=== PATIENT | female | born 1985 | race Two or more races ===

== ENCOUNTER 2018-11-11 18:28 | Emergency (ER) | payer MEDICAID ==
[~2018-11-11] VITALS: Ht 162.6 cm; Wt 80.0 kg
[2018-11-11 19:05] LABS: BASOPHILS # (AUTO) 0.04 x10^3/uL (0-0.1); BASOPHILS % (AUTO) 1 % (0-1); EOSINOPHILS # (AUTO) 0.18 x10^3/uL (0-0.4); EOSINOPHILS % (AUTO) 2 % (1-7); LYMPHOCYTES # (AUTO) 1.86 x10^3/uL (1-3.4); LYMPHOCYTES % (AUTO) 23 % (22-44); MD NO; MEAN CORPUSCULAR HEMOGLOBIN 29.4 pg (27.0-34.8); MEAN CORPUSCULAR HGB CONC 32.6 g/dL (32.4-35.8); MEAN CORPUSCULAR VOLUME 90.1 fL (80-100); MEAN PLATELET VOLUME 8.8 fL (7.4-10.4); MONOCYTES # (AUTO) 0.48 x10^3/uL (0.2-0.8); MONOCYTES % (AUTO) 6 % (2-9); NEUTROPHILS # (AUTO) 5.66 x10^3/uL (1.8-6.8); NEUTROPHILS % (AUTO) 69 % (42-75); PLATELET COUNT 262 x10^3/uL (130-400); RED BLOOD COUNT 4.37 x10^6/uL (3.82-5.3); RED CELL DISTRIBUTION WIDTH 13.9 % (9.6-15.2)
[2018-11-11 19:16] LABS: ALBUMIN 3.9 g/dL (3.4-5.0); ANION GAP 8 mmol/L (5-15); CHLORIDE 108 mmol/L (98-107); CREATININE 0.74 mg/dL (0.55-1.02)
[2018-11-11 19:20] LABS: TROPONIN I < 0.015 ng/mL (0.000-0.045)
--- NOTE | 2018-11-11 19:20 | NUR ---
FROM LOBBY TO ROOM AT THIS TIME
[2018-11-11] MEDS ORDERED: MECLIZINE CHEWABLE 25 MG TAB ONE (19:29)
[2018-11-11] MEDS ORDERED: MECLIZINE CHEWABLE 25 MG TAB PO ONE (19:30)
--- NOTE | 2018-11-11 19:31 | NUR ---
PT PRESENTING TO ER FOR INTERMITTENT DIZZINESS, LEFT EYE TWITCHING AND LEFT HAND GOING NUMB. AT BEDSIDE. MD TO BEDSIDE FOR ASSESSMENT, FURTHER ORDERS RECEIVED. CONNECTED TO ALL MONITORING, VSS. CALL LIGHT WITHIN REACH
[2018-11-11 19:40] VITALS: BP 113/69
--- NOTE | 2018-11-11 19:40 | NUR ---
UA SENT AND PT MEDICATED PER MAR
[2018-11-11 20:12] LABS: T4 (THYROXINE) 8.4 mcg/dL (4.8-13.9); THYROID STIMULATING HORMONE 0.488 mIU/L (0.358-3.740)
[2018-11-11 20:12] LABS: MICROSCOPIC AUTO
[2018-11-11 20:19] LABS: CULTURE INDICATED? YES
--- NOTE | 2018-11-11 21:26 | NUR ---
PT D/C WITH D/C SUMMARY AND SCRIPTS. ALL QUESTIONS ANSWERED. PT AMBULATES TO REGISTRATION DESK WITH STEADY GAIT FOR D/C HOME WITH PARTNER. PT DENIES ANY OTHER NEEDS PERTAINING TO THIS VISIT.
== END 2018-11-11 21:28 | disposition home or self-care (01) ==
LOC: ED 20:48
DX: N30.00 Acute cystitis without hematuria (principal); R42 Dizziness and giddiness
CPT/HCPCS: 36415; 70450; 71045; 80048; 81001; 82040; 83880; 84436; 84443; 84484; 84703; 85025; 87086; 93005; 99284

== ENCOUNTER 2019-01-11 15:46 | Emergency (ER) | payer MEDICAID ==
[~2019-01-11] VITALS: Ht 162.6 cm; Wt 80.0 kg
[2019-01-11 15:47] VITALS: BP 120/69
== END 2019-01-11 16:16 | disposition home or self-care (01) ==
LOC: ED 16:00
DX: K02.9 Dental caries, unspecified (principal)
CPT/HCPCS: 99283

== ENCOUNTER 2021-01-16 17:35 | Emergency (ER) | payer MEDICAID ==
[~2021-01-16] VITALS: Ht 162.6 cm; Wt 78.0 kg
--- NOTE | 2021-01-16 17:57 | NUR ---
EKG COMPLETED IN TRIAGE
--- NOTE | 2021-01-16 18:38 | NUR ---
PT AMBULATORY TO ROOM FROM LOBBY.
--- NOTE | 2021-01-16 19:00 | NUR ---
ERP IN TO SEE PT.
--- NOTE | 2021-01-16 20:05 | NUR ---
PT BACK FROM CT. CALL LIGHT WITHIN REACH.
[2021-01-16 20:07] VITALS: BP 110/72
== END 2021-01-16 20:54 | disposition home or self-care (01) ==
LOC: ED 20:41
DX: G44.209 Tension-type headache, unspecified, not intractable (principal); R94.31 Abnormal electrocardiogram [ECG] [EKG]
CPT/HCPCS: 70450; 71045; 93005; 99285